=== PATIENT | male | born 1955 | race Caucasian/White ===

== ENCOUNTER → 2018-08-25 | Outpatient (CLI) | payer BC | END | disposition home or self-care (01) | LOC: RAD 16:24 | PROVIDERS: ATTEND Family Medicine | DX: R05 Cough (principal) | CPT/HCPCS: 71045 ==

== ENCOUNTER 2019-09-24 07:33 | Emergency (ER) | payer BC, OTHER, MEDICARE ==
[~2019-09-24] VITALS: Ht 162.6 cm; Wt 65.0 kg
[2019-09-24] MEDS ORDERED: KETOROLAC 30MG/ML VIAL IM ONE (08:45)
[2019-09-24 12:20] VITALS: BP 135/78
== END 2019-09-24 12:33 | disposition home or self-care (01) ==
LOC: ER 07:33
DX: M54.5 Low back pain (principal); M25.552 Pain in left hip; M25.512 Pain in left shoulder; R51 Headache; W01.0XXA Fall on same level from slipping, tripping and stumbling without subsequent striking against object, initial encounter; Y93.89 Activity, other specified; Y92.89 Other specified places as the place of occurrence of the external cause; Y99.8 Other external cause status
CPT/HCPCS: 70450; 72100; 72125; 73030; 73522; 96372; 99284; J1885